=== PATIENT | female | born 1945 | race African-American/Black ===

== ENCOUNTER 2016-10-18 10:05 | Emergency (ER) | payer OTHER ==
[~2016-10-18] VITALS: Ht 165.1 cm; Wt 91.2 kg
[~2016-10-18 10:05] MED LIST: ASPIR 8181 MG PO; D-3 PO; LASIX40 MG PO; METOPROLOL SUC200 MG PO; NORVASC10 MG PO; PRAVACHOL40 MG PO; Protonix PO; Sodium Bicarbonate PO
[2016-10-18] MEDS ORDERED: NORCO 5/3251 TABLET PO (14:53)
[2016-10-18 15:38] VITALS: BP 159/85
== END 2016-10-18 15:39 | disposition home or self-care (01) ==
LOC: EME 10:05
DX: S92.352A Displaced fracture of fifth metatarsal bone, left foot, initial encounter for closed fracture (principal); E78.5 Hyperlipidemia, unspecified; I10 Essential (primary) hypertension; Z79.82 Long term (current) use of aspirin; M10.9 Gout, unspecified; Z87.891 Personal history of nicotine dependence; Z88.6 Allergy status to analgesic agent; Z88.1 Allergy status to other antibiotic agents
CPT/HCPCS: 73630; 93971; 99281; 99284

== ENCOUNTER 2018-03-14 12:08 | Inpatient (IN) | payer OTHER ==
[~2018-03-14] VITALS: Ht 165.1 cm; Wt 96.5 kg
[~2018-03-14 12:08] MED LIST changes: -ASPIR 8181 MG PO; -D-3 PO; +LASIX20 MG PO; -LASIX40 MG PO; +LO-DOSE ASPIRIN81 M2 PO; +NORCO 5/3251 TABLET PO; +VITAMIN D-32000 UNI2 PO
[2018-03-14 14:34] LABS: HEMATOCRIT 38.1 % (36.0-46.0); HEMOGLOBIN 12.8 G/DL (11.9-15.5); MCH 31.8 PG (29.0-34.0); MCHC 33.6 G/DL (30.0-36.0); MCV 94.5 FL (83-99); PLATELET COUNT 259 K/uL (156-360); RBC DIS.WIDTH-CV 14.9 % (11.8-14.6); RED BLOOD COUNT 4.03 M/uL (3.80-5.20); WHITE BLOOD COUNT 9.2 K/uL (4.1-10.2)
[2018-03-14 14:42] LABS: CHLORIDE 109 mEq/L (99-109); POTASSIUM 4.5 mEq/L (3.7-5.4); SODIUM 140 mEq/L (136-147)
[2018-03-14 14:44] LABS: GLUCOSE 110 mg/dL (70-99)
[2018-03-14 14:48] LABS: CREATININE 2.2 mg/dL (0.6-1.3); GFR ESTIMATE (CALCULATED) 28 mL/min/
[2018-03-14 14:49] LABS: UREA NITROGEN (BUN) 42 mg/dL (9-23)
[2018-03-14] MEDS ORDERED: ZYLOPRIM100 MG PO (15:21)
[2018-03-14] MEDS ORDERED: STOOL SOFTENER100 M1 PO (15:21)
[2018-03-14] MEDS ORDERED: ROCALTROL0.25 MCG PO (15:22)
[2018-03-14 18:10] VITALS: BP 186/79
[2018-03-14 19:44] VITALS: BP 140/78
[2018-03-14 23:08] VITALS: BP 132/63
[2018-03-15 01:15] LABS: APPEARANCE CLOUDY ((CLEAR)); BILIRUBIN NEGATIVE; BLOOD SMALL; COLOR YELLOW ((YELLOW)); GLUCOSE (STRIP) NEGATIVE; KETONES NEGATIVE; LEUKOCYTES LARGE; NITRITE NEGATIVE; PROTEIN (STRIP) 100; SPECIFIC GRAVITY 1.014 (1.000-1.030); UROBILINOGEN 0.2 MG/DL (0.2-1.0)
[2018-03-15 01:22] LABS: BACTERIA NONE SEEN /HPF; EPITHELIAL CELLS 2+ /HPF; MUCUS TRACE /LPF; RED BLOOD CELLS 40-50 /HPF (0-5); WHITE BLOOD CELLS TNTC /HPF (0-5)
[2018-03-15 03:41] VITALS: BP 122/62
[2018-03-15 06:47] LABS: MCH 31.5 PG (29.0-34.0); MCHC 33.5 G/DL (30.0-36.0); MCV 93.9 FL (83-99); PLATELET COUNT 233 K/uL (156-360); RBC DIS.WIDTH-CV 14.9 % (11.8-14.6); RBC DIS.WIDTH-SD 51.2 % (39-53); WHITE BLOOD COUNT 6.4 K/uL (4.1-10.2)
[2018-03-15 06:54] LABS: HEMOGLOBIN 10.4 G/DL (11.9-15.5)
[2018-03-15 07:10] LABS: CHLORIDE 108 MEQ/L (99-109); CREATININE 2.1 MG/DL (0.6-1.3); GFR ESTIMATE (CALCULATED) 30 mL/min/; GLUCOSE 102 mg/dL (70-99); POTASSIUM 4.2 MEQ/L (3.7-5.4); SODIUM 138 MEQ/L (136-147); UREA NITROGEN (BUN) 45 mg/dL (9-23)
[2018-03-15 07:29] VITALS: BP 132/81
[2018-03-15 15:05] VITALS: BP 126/79
[2018-03-15 20:10] VITALS: BP 158/72
[2018-03-15 23:08] VITALS: BP 190/85
[2018-03-15 23:35] VITALS: BP 145/68
[2018-03-16 04:22] VITALS: BP 137/70
[2018-03-16 09:04] LABS: HEMATOCRIT 28.1 % (36.0-46.0); HEMOGLOBIN 9.4 G/DL (11.9-15.5); MCH 31.4 PG (29.0-34.0); MCHC 33.5 G/DL (30.0-36.0); PLATELET COUNT 219 K/uL (156-360); RBC DIS.WIDTH-SD 51.6 % (39-53); RED BLOOD COUNT 2.99 M/uL (3.80-5.20); WHITE BLOOD COUNT 11.1 K/uL (4.1-10.2)
[2018-03-16 09:13] VITALS: BP 161/76
[2018-03-16 09:28] LABS: CHLORIDE 105 MEQ/L (99-109); CREATININE 2.2 MG/DL (0.6-1.3); GFR ESTIMATE (CALCULATED) 28 mL/min/; GLUCOSE 122 mg/dL (70-99); POTASSIUM 4.7 MEQ/L (3.7-5.4); SODIUM 136 MEQ/L (136-147); UREA NITROGEN (BUN) 43 mg/dL (9-23)
[2018-03-16 11:50] VITALS: BP 121/72
[2018-03-16 15:08] VITALS: BP 135/68
[2018-03-17 00:15] VITALS: BP 136/59
[2018-03-17 04:01] VITALS: BP 119/64
[2018-03-17 07:45] VITALS: BP 115/56
[2018-03-17] MEDS ORDERED: OXYCODONE HCL5 MG PO (09:25)
[2018-03-17 11:40] VITALS: BP 127/68
== END 2018-03-17 15:49 | disposition home health service (06) | DRG 493 ==
LOC: EME 12:08 → ENRESERV 14:44 → 3EAST 15:13 → EDOF 15:13 → 3EAST 17:33
PROVIDERS: Hospitalist; Physician Assistant; Student in an Organized Health Care Education/Training Program
PROC: 0PSC04Z Reposition Right Humeral Head with Internal Fixation Device, Open Approach (ICD-10-PCS; principal; 2018-03-15)
DX: S42.201A Unspecified fracture of upper end of right humerus, initial encounter for closed fracture (principal); S00.81XA Abrasion of other part of head, initial encounter; W01.198A Fall on same level from slipping, tripping and stumbling with subsequent striking against other object, initial encounter; N39.0 Urinary tract infection, site not specified; M81.0 Age-related osteoporosis without current pathological fracture; I12.9 Hypertensive chronic kidney disease with stage 1 through stage 4 chronic kidney disease, or unspecified chronic kidney disease; N18.3 Chronic kidney disease, stage 3 (moderate); E78.5 Hyperlipidemia, unspecified; K57.30 Diverticulosis of large intestine without perforation or abscess without bleeding; M19.011 Primary osteoarthritis, right shoulder; M10.9 Gout, unspecified; N27.0 Small kidney, unilateral; F41.9 Anxiety disorder, unspecified; E66.9 Obesity, unspecified; Z68.35 Body mass index [BMI] 35.0-35.9, adult; Z87.891 Personal history of nicotine dependence
CPT/HCPCS: 70450; 70486; 73030; 76000; 80048; 81003; 85027; 87086; 93005; 99281; 99284; C1713; J0131; J0690; J1100; J1170; J2250; J2710; J2795; J3010; J7120; J7643